=== PATIENT | female | born 1945 | race Caucasian/White ===

== ENCOUNTER 2018-08-22 20:14 | Emergency (ER) | payer MEDICARE, OTHER, MEDICAID ==
[2018-08-22] MEDS: HYDROCODONE/APAP (10/325) TAB PO (22:04)
== END 2018-08-22 23:30 | disposition home or self-care (01) ==
LOC: E/R 23:30
DX: R07.81 Pleurodynia (principal); R42 Dizziness and giddiness; I25.2 Old myocardial infarction; I10 Essential (primary) hypertension; E11.9 Type 2 diabetes mellitus without complications; Z04.3 Encounter for examination and observation following other accident; Z95.5 Presence of coronary angioplasty implant and graft
CPT/HCPCS: 70450; 72125; 93005; 99284-25

== ENCOUNTER → 2019-01-12 | Outpatient (CLI) | payer MEDICARE, OTHER ==
[2019-01-12] MEDS: METOPROLOL 100 MG TAB (10:28)
[2019-01-12] MEDS: NITROGLYCERIN AEROSOL (4.9 GM) (11:06)
[2019-01-12] MEDS: SOD CHLORIDE 0.9% 100 ML (12:05)
[2019-01-12] MEDS: IOHEXOL 100 ML (12:05)
== END | disposition home or self-care (01) ==
LOC: C/S 09:49
DX: R94.39 Abnormal result of other cardiovascular function study (principal); R07.9 Chest pain, unspecified
CPT/HCPCS: 75571; 75574

== ENCOUNTER 2019-01-21 16:50 | Inpatient (IN) | payer MEDICARE, OTHER ==
[2019-01-21] MEDS ORDERED: NITROGLYCERIN (SL) 0.4 MG TAB SL (17:30)
[2019-01-21 17:42] LABS: ADD MAN DIFF? NO
[2019-01-21] MEDS: NITROGLYCERIN 2% 1 GM OINT PKT TD (17:42)
[2019-01-21] MEDS: ONDANSETRON 4 MG INJ IV (17:42)
[2019-01-21] MEDS: morphine 4 MG/ML VIAL IV (17:42)
[2019-01-21 17:45] LABS: BASOPHILS % 0.4 % (0.0-2.0); EOSINOPHILS # 0.1 10^3/ul (0.0-0.5); EOSINOPHILS % 0.8 % (0.0-7.0); HEMATOCRIT 39.1 % (37.0-47.0); HEMOGLOBIN 12.5 g/dl (12.0-16.0); LYMPHOCYTES # 1.9 10^3/ul (0.8-2.9); LYMPHOCYTES % 25.8 % (15.0-51.0); MEAN CORPUSCULAR HEMOGLOBIN 25.1 pg (29.0-33.0); MEAN CORPUSCULAR VOLUME 78.4 fl (82.0-101.0); MEAN PLATELET VOLUME 10.3 fl (7.4-10.4); MONOCYTE # 0.5 10^3/ul (0.3-0.9); MONOCYTES % 7.1 % (0.0-11.0); NEUTROPHIL # 4.7 10^3/ul (1.6-7.5); NEUTROPHILS % 65.6 % (39.0-77.0); PLATELET COUNT 278 10^3/UL (140-415); RED BLOOD COUNT 4.99 10^6/ul (4.20-5.40); RED CELL DISTRIBUTION WIDTH 17.3 % (11.5-14.5)
[2019-01-21 17:45] LABS: WHITE BLOOD COUNT 7.2 10^3/ul (4.8-10.8)
[2019-01-21] MEDS: ASPIRIN 325 MG TAB PO (17:45)
[2019-01-21 17:59] LABS: INR 1.03; PROTIME 13.6 Sec (11.9-14.9); PT RATIO 1.1
[2019-01-21 18:00] LABS: PARTIAL THROMBOPLASTIN TIME 25.8 Sec (23.0-35.0)
[2019-01-21 18:06] LABS: ALANINE AMINOTRANSFERASE 11 IU/L (13-69); ALBUMIN 3.9 g/dl (3.3-4.9); ALBUMIN/GLOBULIN RATIO 1.25; ALKALINE PHOSPHATASE 104 IU/L (42-121); ANION GAP 14 (5-13); ASPARTATE AMINO TRANSFERASE 19 IU/L (15-46); BILIRUBIN,INDIRECT 0.4 mg/dl (0-1.1); BILIRUBIN,TOTAL 0.4 mg/dl (0.2-1.3); BLOOD UREA NITROGEN 18 mg/dl (7-20); CALCIUM 9.6 mg/dl (8.4-10.2); CARBON DIOXIDE 23 mmol/L (21-31); CHLORIDE 98 mmol/L (97-110); CREATININE 0.68 mg/dl (0.44-1.00); GLUCOSE 384 mg/dl (70-220); POTASSIUM 4.1 mmol/L (3.5-5.1); SODIUM 135 mmol/L (135-144)
[2019-01-21 18:19] LABS: B-TYPE NATRIURETIC PEPTIDE 1950 PG/ML (0-125); TROPONIN-I 0.037 ng/ml (0.000-0.120)
[2019-01-21] MEDS ORDERED: NACL 0.9% 3 ML SYG IV (19:00)
[2019-01-21] MEDS ORDERED: GLUCOSE GEL 15 GRAM TUBE BUCCAL (19:00)
[2019-01-21] MEDS ORDERED: DEXTROSE 50% 50 ML SYRINGE IV ×2 (19:00)
[2019-01-21] MEDS ORDERED: GLUCOSE GEL 15 GRAM TUBE PO ×2 (19:00)
[2019-01-21] MEDS ORDERED: GLUCAGON 1 MG INJ IM (19:00)
[2019-01-21 19:22] LABS: D-DIMER 461.39 ng/ml (<460)
[2019-01-21] MEDS ORDERED: ACETAMINOPHEN 325 MG TAB PO (20:00)
[2019-01-21] MEDS ORDERED: ONDANSETRON 4 MG INJ IV (20:00)
[2019-01-21] MEDS: INSULIN GLARGINE [LANTus] (100 UNITS/ML) SYG SC (20:39)
[2019-01-21] MEDS: INSULIN ASPART [NOVOLOG] 3 ML PEN SC (21:00)
[2019-01-21] MEDS: ATORVASTATIN 80 MG TAB PO (21:00)
[2019-01-21 23:26] LABS: TROPONIN-I 0.275 ng/ml (0.000-0.120)
[2019-01-22] MEDS: PREGABALIN 100 MG CAP PO ×3 (03:02→21:28)
[2019-01-22 05:57] LABS: ADD MAN DIFF? NO
[2019-01-22 06:03] LABS: BASOPHILS % 0.4 % (0.0-2.0); EOSINOPHILS # 0.1 10^3/ul (0.0-0.5); EOSINOPHILS % 2.2 % (0.0-7.0); HEMATOCRIT 35.3 % (37.0-47.0); HEMOGLOBIN 11.4 g/dl (12.0-16.0); LYMPHOCYTES # 2.2 10^3/ul (0.8-2.9); MEAN CORPUSCULAR HEMOGLOBIN 25.6 pg (29.0-33.0); MEAN CORPUSCULAR HGB CONC 32.3 g/dl (32.0-37.0); MEAN CORPUSCULAR VOLUME 79.1 fl (82.0-101.0); MEAN PLATELET VOLUME 10.4 fl (7.4-10.4); MONOCYTE # 0.4 10^3/ul (0.3-0.9); MONOCYTES % 7.2 % (0.0-11.0); NEUTROPHIL # 2.8 10^3/ul (1.6-7.5); PLATELET COUNT 205 10^3/UL (140-415); RED BLOOD COUNT 4.46 10^6/ul (4.20-5.40); RED CELL DISTRIBUTION WIDTH 17.5 % (11.5-14.5)
[2019-01-22 06:03] LABS: WHITE BLOOD COUNT 5.6 10^3/ul (4.8-10.8)
[2019-01-22 06:51] LABS: ALANINE AMINOTRANSFERASE 15 IU/L (13-69); ALBUMIN 3.2 g/dl (3.3-4.9); ALBUMIN/GLOBULIN RATIO 1.18; ALKALINE PHOSPHATASE 83 IU/L (42-121); ANION GAP 8 (5-13); ASPARTATE AMINO TRANSFERASE 26 IU/L (15-46); BILIRUBIN,INDIRECT 0.3 mg/dl (0-1.1); BILIRUBIN,TOTAL 0.3 mg/dl (0.2-1.3); BLOOD UREA NITROGEN 20 mg/dl (7-20); CALCIUM 9.3 mg/dl (8.4-10.2); CARBON DIOXIDE 29 mmol/L (21-31); CHLORIDE 101 mmol/L (97-110); CREATININE 0.69 mg/dl (0.44-1.00); GLUCOSE 290 mg/dl (70-220); POTASSIUM 4.1 mmol/L (3.5-5.1); SODIUM 138 mmol/L (135-144); TOTAL PROTEIN 5.9 g/dl (6.1-8.1)
[2019-01-22] MEDS: ISOSORBIDE MONONITRATE(SR)30 MG TAB PO (08:44)
[2019-01-22] MEDS: METOPROLOL (XL) 100 MG TAB PO (08:45)
[2019-01-22] MEDS: ASPIRIN 81 MG TAB PO (08:45)
[2019-01-22] MEDS: INSULIN ASPART [NOVOLOG] 3 ML PEN SC ×7 (08:53→21:00)
[2019-01-22] MEDS: ENOXAPARIN 30 MG/0.3 ML SYG SC (11:12)
[2019-01-22] MEDS: DOXEPIN 10 MG CAP PO (11:19)
[2019-01-22] MEDS: OXYCODONE/ACETAMINOPHEN (5/325) TAB PO (11:45)
[2019-01-22 13:05] LABS: ADD MAN DIFF? NO
[2019-01-22 13:08] LABS: BASOPHILS % 0.6 % (0.0-2.0); EOSINOPHILS # 0.2 10^3/ul (0.0-0.5); EOSINOPHILS % 2.2 % (0.0-7.0); HEMATOCRIT 37.1 % (37.0-47.0); HEMOGLOBIN 11.7 g/dl (12.0-16.0); LYMPHOCYTES # 2.3 10^3/ul (0.8-2.9); LYMPHOCYTES % 32.1 % (15.0-51.0); MEAN CORPUSCULAR HEMOGLOBIN 25.3 pg (29.0-33.0); MEAN CORPUSCULAR HGB CONC 31.5 g/dl (32.0-37.0); MEAN CORPUSCULAR VOLUME 80.3 fl (82.0-101.0); MEAN PLATELET VOLUME 10.5 fl (7.4-10.4); MONOCYTE # 0.5 10^3/ul (0.3-0.9); MONOCYTES % 6.2 % (0.0-11.0); NEUTROPHIL # 4.3 10^3/ul (1.6-7.5); NEUTROPHILS % 58.6 % (39.0-77.0); PLATELET COUNT 300 10^3/UL (140-415); RED BLOOD COUNT 4.62 10^6/ul (4.20-5.40); RED CELL DISTRIBUTION WIDTH 17.8 % (11.5-14.5)
[2019-01-22 13:08] LABS: WHITE BLOOD COUNT 7.3 10^3/ul (4.8-10.8)
[2019-01-22 13:24] LABS: PROTIME 13.3 Sec (11.9-14.9)
[2019-01-22 13:25] LABS: PARTIAL THROMBOPLASTIN TIME 25.6 Sec (23.0-35.0)
[2019-01-22] MEDS: HEPARIN 1000 UNITS/ML 10 ML INJ IV (13:32)
[2019-01-22] MEDS: HEPARIN 25000 UNITS/250 ML 250 ML IV (13:35)
[2019-01-22 19:41] LABS: INR 1.08; PROTIME 14.1 Sec (11.9-14.9); PT RATIO 1.1
[2019-01-22 20:44] LABS: PARTIAL THROMBOPLASTIN TIME 52.6 Sec (23.0-35.0)
[2019-01-22] MEDS: ATORVASTATIN 80 MG TAB PO (21:28)
[2019-01-22] MEDS: INSULIN GLARGINE [LANTus] (100 UNITS/ML) SYG SC (21:41)
[2019-01-23 06:30] LABS: ADD MAN DIFF? NO
[2019-01-23 06:45] LABS: BASOPHIL # 0.1 10^3/ul (0.0-0.1); BASOPHILS % 0.7 % (0.0-2.0); EOSINOPHILS # 0.2 10^3/ul (0.0-0.5); EOSINOPHILS % 2.8 % (0.0-7.0); HEMATOCRIT 37.9 % (37.0-47.0); HEMOGLOBIN 11.7 g/dl (12.0-16.0); LYMPHOCYTES # 2.5 10^3/ul (0.8-2.9); LYMPHOCYTES % 36.6 % (15.0-51.0); MEAN CORPUSCULAR HEMOGLOBIN 25.1 pg (29.0-33.0); MEAN CORPUSCULAR HGB CONC 30.9 g/dl (32.0-37.0); MEAN CORPUSCULAR VOLUME 81.2 fl (82.0-101.0); MEAN PLATELET VOLUME 10.4 fl (7.4-10.4); MONOCYTE # 0.4 10^3/ul (0.3-0.9); NEUTROPHIL # 3.7 10^3/ul (1.6-7.5); NEUTROPHILS % 53.6 % (39.0-77.0); PLATELET COUNT 252 10^3/UL (140-415); RED BLOOD COUNT 4.67 10^6/ul (4.20-5.40); RED CELL DISTRIBUTION WIDTH 17.5 % (11.5-14.5)
[2019-01-23 06:45] LABS: WHITE BLOOD COUNT 6.9 10^3/ul (4.8-10.8)
[2019-01-23 06:52] LABS: INR 0.98; PARTIAL THROMBOPLASTIN TIME 31.1 Sec (23.0-35.0); PROTIME 13.1 Sec (11.9-14.9)
[2019-01-23] MEDS ORDERED: DIAZEPAM 5 MG TAB PO (07:00)
[2019-01-23] MEDS ORDERED: DIPHENHYDRAMINE 50 MG CAP PO (07:00)
[2019-01-23] MEDS: HEPARIN 1000 UNITS/ML 10 ML INJ IV (07:14)
[2019-01-23 07:40] LABS: TRIGLYCERIDES 237 mg/dl (0-149)
[2019-01-23 07:44] LABS: ANION GAP 10 (5-13); BLOOD UREA NITROGEN 30 mg/dl (7-20); CALCIUM 9.4 mg/dl (8.4-10.2); CARBON DIOXIDE 25 mmol/L (21-31); CHLORIDE 100 mmol/L (97-110); CREATININE 0.75 mg/dl (0.44-1.00); GLUCOSE 356 mg/dl (70-220); POTASSIUM 4.5 mmol/L (3.5-5.1); SODIUM 135 mmol/L (135-144)
[2019-01-23] MEDS: INSULIN ASPART [NOVOLOG] 3 ML PEN SC ×7 (07:55→20:45)
[2019-01-23] MEDS: PREGABALIN 100 MG CAP PO ×3 (07:57→20:36)
[2019-01-23] MEDS: METOPROLOL (XL) 100 MG TAB PO ×2 (07:57→11:04)
[2019-01-23] MEDS: ISOSORBIDE MONONITRATE(SR)30 MG TAB PO ×2 (07:58→11:05)
[2019-01-23] MEDS: ASPIRIN 81 MG TAB PO ×3 (07:58→11:09)
[2019-01-23] MEDS: DOXEPIN 10 MG CAP PO ×2 (07:58→11:04)
[2019-01-23] MEDS ORDERED: IODIXANOL LOCM 100 ML BTL (09:26)
[2019-01-23] MEDS ORDERED: HEPARIN 1000 UNITS/ML 10 ML INJ (09:26)
[2019-01-23] MEDS ORDERED: MIDAZOLAM 1 MG/ML 2 ML INJ (09:26)
[2019-01-23] MEDS ORDERED: LIDOCAINE 1% (MDV) 20 ML INJ (09:26)
[2019-01-23] MEDS ORDERED: VERAPAMIL 5 MG INJ (09:27)
[2019-01-23] MEDS ORDERED: FENTAnyl 50 MCG/ML VIAL (09:27)
[2019-01-23] MEDS ORDERED: NITROGLYCERIN (IC) 100 MCG/ML INJ (10:04)
[2019-01-23] MEDS: SOD CHLORIDE 0.9% 1,000 ML IV (10:55)
[2019-01-23] MEDS ORDERED: ONDANSETRON 4 MG INJ IV (11:00)
[2019-01-23] MEDS ORDERED: AL HYDROX/MG HYDROX/SIMETH 30 ML CUP PO (11:00)
[2019-01-23 15:08] LABS: PARTIAL THROMBOPLASTIN TIME 23.9 Sec (23.0-35.0)
[2019-01-23] MEDS: ATORVASTATIN 80 MG TAB PO (20:36)
[2019-01-23] MEDS: INSULIN GLARGINE [LANTus] (100 UNITS/ML) SYG SC (20:46)
[2019-01-24] MEDS: INSULIN ASPART [NOVOLOG] 3 ML PEN SC ×5 (07:44→16:58)
[2019-01-24 08:20] LABS: ADD MAN DIFF? NO
[2019-01-24 08:34] LABS: WHITE BLOOD COUNT 5.7 10^3/ul (4.8-10.8)
[2019-01-24 08:34] LABS: BASOPHILS % 0.3 % (0.0-2.0); EOSINOPHILS # 0.2 10^3/ul (0.0-0.5); EOSINOPHILS % 3.3 % (0.0-7.0); HEMATOCRIT 34.8 % (37.0-47.0); HEMOGLOBIN 10.8 g/dl (12.0-16.0); LYMPHOCYTES # 2.2 10^3/ul (0.8-2.9); LYMPHOCYTES % 37.6 % (15.0-51.0); MEAN CORPUSCULAR HEMOGLOBIN 25.1 pg (29.0-33.0); MEAN CORPUSCULAR VOLUME 80.7 fl (82.0-101.0); MEAN PLATELET VOLUME 10.4 fl (7.4-10.4); MONOCYTE # 0.4 10^3/ul (0.3-0.9); NEUTROPHILS % 51.6 % (39.0-77.0); PLATELET COUNT 202 10^3/UL (140-415); RED BLOOD COUNT 4.31 10^6/ul (4.20-5.40); RED CELL DISTRIBUTION WIDTH 17.5 % (11.5-14.5)
[2019-01-24 08:42] LABS: MAGNESIUM 1.8 mg/dl (1.7-2.5)
[2019-01-24 08:44] LABS: ANION GAP 9 (5-13); BLOOD UREA NITROGEN 23 mg/dl (7-20); CALCIUM 8.7 mg/dl (8.4-10.2); CARBON DIOXIDE 27 mmol/L (21-31); CHLORIDE 102 mmol/L (97-110); GLUCOSE 155 mg/dl (70-220); SODIUM 138 mmol/L (135-144)
[2019-01-24] MEDS: METOPROLOL (XL) 100 MG TAB PO (08:54)
[2019-01-24] MEDS: PREGABALIN 100 MG CAP PO (08:54)
[2019-01-24] MEDS: ISOSORBIDE MONONITRATE(SR)30 MG TAB PO (08:54)
[2019-01-24] MEDS: DOXEPIN 10 MG CAP PO (08:54)
[2019-01-24] MEDS: ASPIRIN 81 MG TAB PO (08:55)
[2019-01-24] MEDS ORDERED: DIAZEPAM 5 MG TAB PO (10:00)
[2019-01-24] MEDS ORDERED: DIPHENHYDRAMINE 50 MG CAP PO (10:00)
== END 2019-01-24 17:11 | disposition short-term general hospital (02) | DRG 282 ==
LOC: TEL 19:35 → E/R 16:50 → TEL 01-22 18:34
PROC: 4A023N7 Measurement of Cardiac Sampling and Pressure, Left Heart, Percutaneous Approach (ICD-10-PCS; principal; 2019-01-23 09:10)
PROC: B211YZZ Fluoroscopy of Multiple Coronary Arteries using Other Contrast (ICD-10-PCS; 2019-01-23 09:10)
PROC: B215YZZ Fluoroscopy of Left Heart using Other Contrast (ICD-10-PCS; 2019-01-23 09:10)
DX: I21.4 Non-ST elevation (NSTEMI) myocardial infarction (principal); E11.65 Type 2 diabetes mellitus with hyperglycemia; E66.01 Morbid (severe) obesity due to excess calories; I25.10 Atherosclerotic heart disease of native coronary artery without angina pectoris; I10 Essential (primary) hypertension; E78.5 Hyperlipidemia, unspecified; F41.9 Anxiety disorder, unspecified; Z79.4 Long term (current) use of insulin; Z79.82 Long term (current) use of aspirin; Z68.36 Body mass index [BMI] 36.0-36.9, adult; Z71.3 Dietary counseling and surveillance; Z95.5 Presence of coronary angioplasty implant and graft; Z87.891 Personal history of nicotine dependence
CPT/HCPCS: 36415; 71045; 80048; 80053; 82962; 83036; 83735; 83880; 84478; 84484; 85025; 85378; 85610; 85730; 93005; 93306; 93458; 96374; 96375; 99285-25; G0378